=== PATIENT | female | born 1985 | race Caucasian/White ===

== ENCOUNTER 2024-09-13 10:35 | Emergency (ER) | payer OTHER, SELFPAY ==
[2024-09-13] VITALS (8 sets, daily range): BP systolic 103–129; BP diastolic 76–89; PULSE 67–86; RESP 16; TEMP 36.3; O2SAT 98–100; BMI 30.9
--- NOTE | 2024-09-13 10:38 | USR_ITS ---
PROCEDURE INFORMATION: Exam: US Pelvis, Transvaginal, Non-Obstetric Exam date and time: 09/13/2024 12:27 PM Age: 38 years old Clinical indication: Other: Bleeding; Additional info: Vag bleeding TECHNIQUE: Imaging protocol: Real-time transvaginal pelvic (non-obstetric) ultrasound with image documentation. Transvaginal imaging was used for better evaluation of the endometrium, adnexa, and/or cervix. COMPARISON: No relevant prior studies available. FINDINGS: Uterus: Endocervical canal demonstrates heterogeneous complex mobile material on the cine images, without significant color flow. This could represent blood products within the endocervical canal with the clinical history. Uterine trace is 10.1 cm which includes the cervix. Uterus measures 6.99 cm in width and 5.5 cm AP. Thickened echogenic endometrium of 2.1 cm along with fluid in the endometrial cavity. Mildly heterogeneous rounded focus x2 is seen within the myometrium of the uterus measuring 3.8 x 3.6 x 2.7 cm and 3.3 x 3.5 x 3.2 cm. Findings are most suggestive of uterine fibroids. Right ovary/adnexa: Right ovary measures 3.5 x 3 x 3.7 cm with a volume 20.9 mL. Right ovarian flow is seen with PSV 11.1 cm/s and EDV of 7.8 cm/s. RI of 0.3. Complex cystic structure right ovary of 3.2 x 2.5 x 3 cm. Left ovary/adnexa: Left ovary measures 2.9 x 2.8 x 1.8 cm with a volume of 7.5 mL. Left ovarian flow is seen with PSV 20.3 cm/s and EDV of 9.1 cm/s. No RI given. Complex cyst suggested left ovary of 1.1 x 1.2 x 1.2 cm. Urinary bladder: Urinary bladder is limited. Intraperitoneal space: Patm-dp-kdafbcxk free fluid near the fundus of the uterus. US/US transvaginal [id number] IMPRESSION: 1. Two rounded heterogeneous foci or masses within the myometrium of the uterus most suggestive of uterine fibroids, measuring 3.8 x 3.6 x 2.7 cm and 3.3 x 3.5 x 3.2 cm. 2. Thickened endometrium of 2.1 cm along with fluid in the endometrial cavity. Heterogeneous complex mobile material within the endocervical canal noted, could represent blood products within the endocervical canal with the clinical history. 3. Complex cystic structure right ovary of 3.2 x 2.5 x 3 cm and complex cyst of the left ovary of 1.1 x 1.2 x 1.2 cm. Bilateral ovarian flow is seen. 4. Rgkx-vr-iqgplgtl free fluid near the fundus of the uterus.
--- OUTSIDE RECORDS SUMMARY | 2024-09-13 10:45 | XMS_ITS | Clinical Summary ---
Author Organization [employer] Address [address], [address] [place] [address] Care Team Providers Care Fitness Attendant Name Role Phone Unavailable Unavailable Unavailable Problems This patient has no known problems. Allergies, Adverse Reactions, Alerts This patient has no known allergies or adverse reactions. Immunizations Ordered Immunization Name Filled Immunization Name Date Status Comments Refusal Reason COVID-19, mRNA, LNP-S, PF, 30 mcg/0.3 mL dose COVID-19, mRNA, LNP-S, PF, 30 mcg/0.3 mL dose 2020-11-14 00:00:00 COVID-19, mRNA, LNP-S, PF, 30 mcg/0.3 mL dose COVID-19, mRNA, LNP-S, PF, 30 mcg/0.3 mL dose 2020-10-24 00:00:00
--- OUTSIDE RECORDS SUMMARY | 2024-09-13 10:45 | XMS_ITS | Clinical Summary ---
Author Organization [facility] [place] Address [address] [place] [place] [address] Care Team Providers Care Hydro Mechanic Name Role Phone Ana Goodson (D.O.) Primary Care Provider [phone] Source Comments NOTE: The information displayed by Care Everywhere is extracted from the complete medical record and may not identify all current or past patient conditions.[facility] Allergies Active Allergy Reactions Criticality Noted Date Comments Penicillins Class Rash 12/09/2007 Medications Medication Sig Dispensed Refills Start Date End Date Status tiZANidine (ZANAFLEX) 2 mg Oral TabIndications:RI GHT HIP JOINT PAIN Take 1 tablet by mouth 3 times a day as needed for muscle spasms 30 tablet 07/24/2023 07/23/2025 Active Additional Information Patient not taking.Reported on 08/13/2023 Tranexamic Acid (LYSTEDA) 650 mg Oral Tab Take 2 tablets by mouth 3 times a day for 5 days 30 tablet 01/03/2024 01/02/2026 Active Levonorgestrel (MIRENA) 21 mcg/24hr (up to 8 yrs) 52 mg UTRN IUDIndications:IU D INSERTION 1 Each by Intrauterine route one time as directed now. Replace within 8 years--given in clinic 1 Each 01/06/2024 01/04/2032 Active Active Problems Problem Noted Date Diagnosed Date GI SYMPTOMS 03/11/2020 Overview (03/11/2020): Added automatically from request for surgery [id number] HX OF DM RESOLVED POST BARIATRIC SURGERY 016 HX OF SLEEVE GASTRECTOMY 10/11/2015 FHX OF OVARIAN CANCER 08/09/2015 Overview (08/09/2015): Pt unclear on details of history because not in touch with mother for 10 years. Referred to genetics for further discussion. HYPERLIPIDEMIA 04/28/2015 SEVERE OBESITY, BMI 45-49.9, ADULT 04/25/2015 DYSLIPIDEMIA 01/07/2014 LEFT AMBLYOPIA 02/20/2013 STRABISMUS 02/20/2013 *OTHER MR# EXISTS Overview (08/21/2005): ACTIVE: [id number] INACTIVE: [id number] Resolved Problems Problem Noted Date Diagnosed Date Resolved Date GERD (GASTROESOPHAGEAL REFLUX DISEASE) 02/22/2009 04/25/2015 PAIN, PELVIC, FEMALE, UNK ETIOLOGY. 12/09/2007 04/25/2015 *NEW MEMBER 03/10/2024 Overview (03/10/2024): Membership Terminated Immunizations Name Administration Dates Next Due COVID-19 mRNA, LNP-S, PF (kissnofrog-Whereech) PURPLE CAP 11/14/2020,10/24/2020 COVID-19 mRNA, LNP-S, PF 12y rs-Adult (MediBeaconech, che-sucrose) BLISS CAP 05/19/2021 DTaP (Diphtheria, Tetanus, a cellular Pertussis) 02/28/1987,07/05/1986,08/12/1985,1985,01/28/1985 HAV (Hepatitis A) 12/24/2013,06/04/2002 HBV (Hepatitis B) 09/01/1998,04/14/1998,03/11/18 99 INF (Influenza) unspecified formulation 12/24/2013,02/09/2011 MMR (Measles, Mumps, Rubella) 10/10/1998, 987 JOSE-IPV (Polio, Inactivated virus) 02/28,07/05/1986,04/23/1985,1984 JOSE-OPV (Polio, live virus) 02/28/1987,0 07/05/1986,04/23/1985,1984 TB-PPD, (TB skin test) 01/07/2014,12/24/2013 TD pres free (Tetanus, Dipht heria) (TdVax), adsorbed 06/04/2002 Td adult (Tetanus, diphtheri a toxoids) unspecified formulation 06/04/2002 Tdap (Tetanus, diphtheria, a cellular pertussis) 02/09/2011 Family History Medical History Relation Comments Breast Cancer Aunt Cervical Cancer Mother diagnosed in her mid 40 's Ovarian Cancer Mother unclear about th is Colon Cancer None Relation Status Comments Aunt Mother Social History Tobacco Use Types Packs/Day Years Used Date Smoking Tobacco: Former Cigarettes 0.1 0.1 0 07/20/2001 - 08/25/2001 Passive Smoke Exposure: Never Smokeless Tobacco: Never Tobacco Cessation:Counseling Given: Not Answered Comments:for 2 months Alcohol Use Standard Drinks/Week Comments No 0 (1 standard drink = 0.6 oz pur e alcohol) Substance Use Types Use/Week Comments No Sex and Gender Information Value Date Recorded Sex Assigned at Not on file Gender Identity Not on file Sexual Orientation Not on file Last Filed Vital Signs Vital Sign Reading Time Taken Comments Blood Pressure 128/88 01/03/2024 5:00 PM PDT Pulse 80 01/03/2024 5:00 PM PDT Temperature 36.9 C (98.4 F) 01/03/2024 9:19 AM PDT Respiratory Rate 16 01/03/2024 5:00 PM PDT Oxygen Saturation 98% 01/03/2024 5:00 PM PDT Inhaled Oxygen Concentration - - Weight 84.4 kg (186 lb) 01/06/2024 9:21 AM PST Height 162.6 cm (5' 4 ) 01/06/2024 9:21 AM PST Body Mass Index 31.93 01/06/2024 9:21 AM PST Plan of Treatment Not on file Medical Devices Implanted Type Area Parlor Chaperone Device Identifier Shelf Expiration Date Model / Serial / Lot Iud Mirena- Implanted:Qty: 1 on 01/06/2024 by Edwina Sheridan) Gynecolo gy/Obste trics Uterus DAISY LAURIE [id number] 06/01/2025 [id number] / [id number] Advance Directives * Full Code (Latest Code Status on File) Date Activated Date Inactivated Comments 10/05/2015 2:54 PM 10/06/2015 10:45 PM * Full Code Date Activated Date Inactivated Comments 10/05/2015 10:32 AM 10/05/2015 2:54 PM Care Teams Hydro Mechanic Relationship Specialty Start Date End Date Ana Goodson (D.OMarianne) [address] [facility]3] ASH[place] WOMACK [phone] (Work) PCP - General 08/28/21
--- OUTSIDE RECORDS SUMMARY | 2024-09-13 10:45 | XMS_ITS | Encounter Summary ---
Author Organization [facility] [place] Address [address] [address] Care Team Providers Care Cafeteria Associate Name Role Phone Edwina Sheridan) Ana Oh (D.O.) Primary Care Provider [phone] Encounter Details Date Type Department Care Team (Late st Contact Info) Description 10/23/2021 Orders Only OBSTETRICS AND GYNECOLOGY [address] [place] [address] Edwina Sheridan) [address] [place] [address] [phone] (Work) SCREENING FOR CERVICAL CANCER Social History Tobacco Use Types Packs/Day Years Used Date Smoking Tobacco: Former Cigarettes 0.1 0.1 0 07/20/2001 - 08/25/2001 Smokeless Tobacco: Never Comments:for 2 months Alcohol Use Standard Drinks/Week Comments No 0 (1 standard drink = 0.6 oz pur e alcohol) Substance Use Types Use/Week Comments No Sex and Gender Information Value Date Recorded Sex Assigned at Not on file Gender Identity Not on file Sexual Orientation Not on file documented as of this encounter Procedure Notes * Edwina Sheridan) - 10/25/2021 1:17 AM PDTAssociated Order(s): CERVICAL CANCER SCREENING RESULTS, KP.ORG RELEASE I'm pleased to inform you that your recent cervical cancer screening (HPV test) was normal. Unless instructed otherwise, your next cervical cancer screening tests will be due in 3 years. Please call my office or send me an email message on .[email or web address] if you have any questions or concerns before your next exam. <a href= https://www..org/ncalpapnh target= _top > Clic aqu para mirar los resultados en espa ol</a> <a href= [email or web address]/nctessa/ target= _top > Click here to E- mail your doctor</a> documented in this encounter Plan of Treatment Not on file documented as of this encounter Procedures Procedure Name Priority Date/Time Associated Diagnosis Comments HPV, HIGH RISK TYPES Routine 10/23/2021 3:42 PM PDT SCREENING FOR CERVICAL CANCER CERVICAL CANCER SCREENING RESULTS, [email or web address] RELEASE 10/23/2021 3:42 PM PDT documented in this encounter Results * HPV, HIGH RISK TYPES (10/23/2021 3:42 PM PDT) Specimen source Cervical [facility] HPV 16/18 DNA, PCR NEGATIVE NEGATIVE [facility] HPV 12-OTHER DNA, PCR NEGATIVE NEGATIVE [facility] HPV DNA INTERPRETATION , PCR SEE NOTE [facility] Comment: This is a normal result. HPV DNA type 16, 18, 31, 33, 35, 39, 45, 51, 52, 56, 58, 59, 66 and 68 were undetectable. 10/23/2021 3:42 PM PDT 10/23/2021 10:16 PM PDT Edwina Ray) Arvin [facility] ONLY [facility] [address] [place] [address] * CERVICAL CANCER SCREENING RESULTS, .ORG RELEASE (10/23/2021 3:42 PM PDT) 10/23/2021 3:42 PM PDT Narrative Procedure Note Edwina Sheridan) - 10/25/2021 1:17 AM PDTI'm pleased to inform you that your recent cervical cancer screening (HPV test) was normal. Unless instructed otherwise, your next cervical cancer screening tests will be due in 3 years. Please call my office or send me an email message on .[email or web address] if you have any questions or concerns before your next exam. <a href= https://www..org/ncalpapnh target= _top > Clic aqu para mirar los resultados en espa ol</a> <a href= https://[email or web address]/nctessa/ target= _top > Click here to E- mail your doctor</a> Edwina Ray) Arvin [facility] documented in this encounter Visit Diagnoses Diagnosis SCREENING FOR CERVICAL CANCER SCREENING FOR CA, CERVIX documented in this encounter Care Teams Cafeteria Associate Relationship Specialty Start Date End Date Edwina Sheridan) [address] [place] [address] PCP - NURSE LDR Physician 06/16/1401/26 Ana Goodson (D.OMarianne) [address] [place] [address] [phone] (Work) PCP - General 08/28/21 documented as of this encounter
--- OUTSIDE RECORDS SUMMARY | 2024-09-13 10:45 | XMS_ITS | Encounter Summary ---
Author Organization [facility] [place] Address [address] [place] [address] Care Team Providers Care Daycare Worker Name Role Phone Edwina Sheridan) Daksha Tucker) Primary Care Provider [phone] Ana Goodson (D.OMarianne) Primary Care Provider [phone] Encounter Details Date Type Department Care Team (Late st Contact Info) Description 05/17/2020 Orders Only DEFAULT SECURE MESSAGE DEPT [address] [place] [phone] Social History Tobacco Use Types Packs/Day Years [...] on file documented as of this encounter Plan of Treatment Not on file documented as of this encounter Procedures Procedure Name Priority Date/Time Associated Diagnosis Comments SARS-COV-2, JED (COVID-19), REFERRAL LAB, -[facility] Routine 05/17/2020 12:27 PM PDT documented in this encounter Results * SARS-COV-2, JED (COVID-19), REFERRAL LAB, -[facility] (05/17/2020 12:27 PM PDT) Specimen source MACHINE OPERATIONS SUPERVISOR/OP [facility] , CLINICAL PATHOLOGY [facility] SARS-COV-2 (COVID-19) PANEL, JED Not Detected [facility] , CLINICAL PATHOLOGY [facility] Comment: The test has been validated and the Food and Drug Administration s independent review of this validation is pending. Test results are for the identification of SARS-CoV-2 RNA, which may be detectable in samples submitted during the acute phase of infection. Positive / Detected. GM- CoV-2 RNA present. Negative / Not Detected results for GM- CoV-2 RNA do not rule out COVID-19 infection and should not be used as the sole basis for patient management. Negative / Not Detected results must be combined with other information such as patient history, clinical observations and epidemiology. Resubmit if clinically indicated. Presumptive Positive. Not all COVID-19 targets detected. Consider the test POSITIVE if there was a high pre-test probability of COVID-19 infection. Consider repeat testing if clinically indicated. Inconclusive. Not all COVID-19 targets detected. Consider repeat testing if clinically indicated. For I nvalid results a new specimen needs to be obtained for retesting. This test is only authorized for the duration of the declaration that circumstances exist justifying the authorization of the emergency use of in vitro diagnostic tests for the detection of GM- CoV-2 RNA and/or diagnosis of COVID-19 infection. Nasopharynx/Oropharynx source. 05/17/2020 12:2 7 PM PDT 05/17/2020 12:28 PM PDT Secure Message Provider [facility], CLINICAL PATHOLOGY [facility] [address] [place] [address] documented in this encounter Visit Diagnoses Not on filedocumented in this encounter Care Teams Daycare Worker Relationship Specialty Start Date End Date Edwina Sheridan) [address] [place] [address] PCP - SANDBLASTER STONE Physician 06/16/1401/26 Daksha Ozuna) [address] [place] [phone] (Work) [phone] (Fax) PCP - General 04/21/15 06/01/21 Ana Goodson) [address] [place] [phone] (Work) PCP - General 08/28/21 documented as of this encounter
--- OUTSIDE RECORDS SUMMARY | 2024-09-13 10:45 | XMS_ITS | Clinical Summary ---
Author Organization [employer] Address [facility] [place] [address] Care Team Providers Care Roof Slater Name Role Phone Myron Unavailable Allergies Active Allergy Reactions Criticality Noted Date Comments Penicillins 12/19/2011 Medications MULTIVITAMIN (DAILY VITAMINS ORAL) Take by mouth. 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 at [facility] d 12/24/2013 Overview (12/24/2013): Latest March 2013 per patient Myopia with astigmatism 02/20/2013 Anisometropia 02/20/2013 Strabismus 02/20/2013 Amblyopia - Left Eye 02/20/2013 Immunizations Immunization Administration Dates Next Due COVID-19 Pfizer, mRNA, LNP-S , PF, 30 mcg/0.3 mL dose (purple cap) (BRV=967) 11/14/2020,10/24/2020 COVID-19 Pfizer, mRNA, LNP-S , PF, 30 mcg/0.3 mL dose, Comirnaty (vargas cap) (AGP=265) 05/19/2021 DTP (CVX=01) 02/28/1987, 7,08/12/1985,1985,01/28/1985 Hep A, adult (CVX=52) 12/24/2013 Hep A, pediatric, unspecifie d formulation (CVX=31) 06/04/2002 Hep B, adolescent or pediatr ic (CVX=08) 09/01/1998,04/14/1998,03/11/1998 MMR (CVX=03) 10/10/1998,07/15/1986 OPV (CVX=02) 02/28/1987, 7,04/23/1985,1984 TST-PPD intradermal (CVX=96) 01/07/2014,12/25/19 14 Td(adult) unspecified formul ation (TJJ=870) 06/04/2002 Tdap (EDR=440) 02/09/2011 influenza, injectable, quadr ivalent (HDV=153) 12/24/2013 influenza, unspecified formu lation (CVX=88) 02/09/2011 Family History Relation Status Comments Father Alive Mother Alive Social History Tobacco Use Types Packs/Day Years Used Date Smoking Tobacco: Never Alcohol Use Standard Drinks/Week Comments No 0 (1 standard drink = 0.6 oz pur e alcohol) Comments Unknown Sex and Gender Information Value Date Recorded Sex Assigned at Not on file Legal Sex Female 4:25 AM PST Gender Identity Not on file Sexual Orientation Not on file Last Filed Vital Signs Vital Sign Reading Time Taken Comments Blood Pressure 128/87 01/07/2014 1:24 PM PST Pulse 86 01/07/2014 1:24 PM PST Temperature 36.7 C (98 F) 01/07/2014 1:24 PM PST Respiratory Rate 18 12/19/2011 12:16 PM PDT Oxygen Saturation 98% 01/07/2014 1:24 PM PST Inhaled Oxygen Concentration - - Weight 118.4 kg (261 lb) 01/07/2014 1:24 PM PST Height 163 cm (5' 4.17 ) 12/24/2013 1:10 PM PDT Body Mass Index 44.56 12/24/2013 1:10 PM PDT Plan of Treatment Health Maintenance Due Date Last Done Comments Hepatitis C Screening Adults 1985 HIV Screening 11/26/1999 TdaP then Td-TdaP Q10yr Adul ts non- (7 - Td or Tdap) 02/09/2021 02/09/2011, 06/04/2002, 02/28/1987, Additional history exists COVID-19 Vaccine (4 - 2023-2 5 season) 2023 05/19/2021, 11/14/2020, 10/24/2020 Influenza Vaccine (#1) 2024 12/24/2013, 2010 IPV VACCINES Completed 02/28/1987, 05/0 06/1986, 04/23/1985, Additional history exists Hepatitis B Vaccine Completed 09/01/1998, 04/14/1998, 03/11/1998 RPR Screening Completed 09/08/2009 TB Risk Assessment Completed 01/09/2014, 01/07/2014 Procedures Procedure Name Priority Date/Time Associated Diagnosis Comments APPLY TB SKIN TEST Routine 01/09/2014 1: 19 PM PST Dyslipidemia (high LDL; low HDL) RAPID PLASMA REAGIN Routine 09/08/2009 9 :05 AM PDT from Last 3 Months or Most Recently Relevant to Health Maintenance Results * TB Skin Test (01/09/2014 1:19 PM PST) TB Skin Test Negative Negative Induration TB test 0 mm Specimen of unknown material (specimen) 01/09/2014 1:19 PM PST us Jose Sevilla MD NURSING TREATMENT ORDERABLES - ONCE Final Result * Rapid Plasma Reagin (09/08/2009 9:05 AM PDT) RPR NON-REACT. NON-REAC. [facility] 09/08/2009 9:05 AM PDT 09/08/2009 9:29 AM PDT us Raquel Corado [facility] BLOOD ORDERABLES Final Res ult [facility] from Last 3 Months or Most Recently Relevant to Health Maintenance Care Teams Roof Slater Relationship Specialty Start Date End Date [place] [address] [place], [place] [address] PCP - Patient Location 03/28/09
--- OUTSIDE RECORDS SUMMARY | 2024-09-13 10:45 | XMS_ITS | Clinical Summary ---
Author Organization [employer] Address [address] [place] [address] Care Team Providers Care Road Commissioner Name Role Phone Unavailable Primary Care Provider Unavailabl e Social History Tobacco Use Types Packs/Day Years Used Date Smoking Tobacco: Never Assessed Comments Unknown Sex and Gender Information Value Date Recorded Sex Assigned at Not on file Legal Sex Female 6:25 PM PDT Gender Identity Not on file Sexual Orientation Not on file Plan of Treatment Health Maintenance Due Date Last Done Comments Screening: HIV 1984 IMM DTAP/TDAP/TD (1 - Tdap) 11/26/2003 Screening: Cervical Cancer 2014 IMM COVID-19 (2023- season) 2023 IMM Influenza (#1) 2024 IMM Meningococcal ACWY Aged Out No lo nger eligible based on patient's age to complete this topic IMM Meningococcal B Aged Out No longe r eligible based on patient's age to complete this topic IMM Pneumococcal Ages 0-49 Aged Out N o longer eligible based on patient's age to complete this topic IMM RSV Vaccine under 20 MOS Aged Out No longer eligible based on patient's age to complete this topic
--- OUTSIDE RECORDS SUMMARY | 2024-09-13 10:45 | XMS_ITS | Clinical Summary ---
Author Organization [facility] Address [address] 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 The Federal rules prohibit you from making any further disclosure of this information unless further disclosure is expressly permitted by the written consent of the person to whom it pertains or as otherwise permitted by 42 CFR part 2. A general authorization for the release of medical or other information is NOT sufficient for this purpose. The Federal rules restrict any use of the information to criminally investigate or prosecute any alcohol or drug abuse patient.[facility] Allergies Active Allergy Reactions Criticality Noted Date Comments Penicillins Headache,Nausea,Rash, Unspecified 1 Medications Multiple Vitamin (MULTIVITAMIN ADULT PO) Take by mouth Active omeprazole (PRILOSEC OTC) 20 MG Tab Take one Tab by mouth daily Active buPROPion 12Hr-SR (WELLBUTRIN SR) 100mg Tab Take one Tab by mouth every morning 05/26/2024 Active Immunizations Immunization Administration Dates Next Due DTP 02/28/1987, 7,08/12/1985,1985,01/28/1985 Hepatitis A 12/24/2013 Hepatitis A Vaccine, Pediatr ic Dosage, Nos 06/04/2002 Hepatitis B (ENGERIX-B, SVETLANA MBIVAX HB) 0.5mL Ped/Adol Dose Vaccine through 19YO INJ 09/01/1998,04/14/1998,03/11/1998 Influenza Virus Vaccine, NOS 02/09/2011 Influenza vaccine QUADR MDV 3+ YO (FLUZONE, AFLURIA) 12/24/2013 MMR Vaccine INJ 10/10/1998,07/15/1986 Pfizer 12+ Monovalent ([place] Cap - DO NOT DILUTE) COVID-19 Vaccine INJ 05/19/2021 Pfizer 12+ Monovalent (Purpl e Cap) COVID-19 Vaccine INJ 11/14/2020,10/24/2020 Polio Oral *TOPV 02/28/1987, 7,04/23/1985,1984 Td (Adult) Unspecified Formulation 06/04/2002 Tdap (ADACEL) 7-64 YRS 02/09/2011 Tuberculin Skin Test, Purifi ed Protein Derivative, Intradermal 01/07/2014,12/24/2013 Family History Medical History Relation Comments Cancer - Cervical Maternal Aunt Diabetes Maternal Grandmother Depression Mother Emphysema Mother Schizophrenia Mother Substance Abuse Mother Tobacco abuse Mother Breast cancer No Significant Family History Cerebrovascular Disease/Stroke No Significant Fa mary History Colon Cancer No Significant Family History Coronary Artery Disease No Significant Family Hi story Lung Cancer No Significant Family History Relation Status Comments Father Unknown Maternal Aunt Alive Maternal Grandmother Mother Social History Tobacco Use Types Packs/Day Years Used Date Smoking Tobacco: Never Passive Smoke Exposure: Never Tobacco Cessation:Counseling Given: Not Answered Alcohol Use Standard Drinks/Week Comments Never 0 (1 standard drink = 0.6 oz pur e alcohol) Overall Financial Resource Strain (CARDIA) Answe r Date Recorded How hard is it for you to pa y for the very basics like food, housing, medical care, and heating? Somewhat hard 05/26/2024 Hunger Vital Sign Answer Date Recorded Within the past 12 months, y ou worried that your food would run out before you got the money to buy more. Sometimes true Ran Out of Food in the Last Year Not on file 05/26/2024 Housing Stability Vital Sign Answer Eugene e Recorded Unable to Pay for Housing in the Last Year Not o n file 05/26/2024 Number of Times Moved in the Last Year Not on fi le 05/26/2024 At any time in the past 12 m [facility], were you homeless or living in a detention (including now)? No 05/26/2024 Depression Answer Date Recorded PHQ-9 Total Score (0-4 None- minimal; 5-9 Mild; 10-14 Moderate; 15-19 Mod. Severe; 20-27 Severe) 4 05/26/2024 Core Social Determinants of Health Screening Questions Answer Date Recorded Within the past 12 months, y ou worried that your food would run out before you got the money to buy more. Sometimes true 05/26/2024 Food Insecurity Food Insecurity Present 05/27/19 At any time in the past 12 m [facility], were you homeless or living in a detention (including now)? No 05/26/2024 How hard is it for you to pa y for the very basics like food, housing, medical care, and heating? Somewhat hard 05/26/2024 Physically Abused Not on file 05/26/2024 Comments No Sex and Gender Information Value Date Recorded Sex Assigned at Not on file Legal Sex Female 8:38 AM PST Gender Identity Not on file Sexual Orientation Not on file Last Filed Vital Signs Vital Sign Reading Time Taken Comments Blood Pressure 124/80 05/26/2024 11:26 AM PDT Pulse 65 05/26/2024 11:26 AM PDT Temperature 36.6 C (97.9 F) 05/26/2024 11:26 AM PDT Respiratory Rate - - Oxygen Saturation - - Inhaled Oxygen Concentration - - Weight 82.1 kg (181 lb) 05/26/2024 11:26 AM PDT Height 162.6 cm (5' 4 ) 05/26/2024 11:26 AM PDT Body Mass Index 31.07 05/26/2024 11:26 AM PDT Plan of Treatment Health Maintenance Due Date Last Done Comments HPV SCREENING 1996 VARICELLA VACCINE (1 of 2 - 13+ 2-dose series) 11/07/1998 ANNUAL LABS POST BARIATRIC SURGERY FOLLOW-UP 2002 HEPATITIS C SCREENING 2002 UNIVERSAL HIV SCREENING 2002 PAP SMEAR 2005 DTaP,Tdap,or Td Vaccine (7 - Td or Tdap) 02/09/2021 02/09/2011, 06/04/2002, 02/28/1987, Additional history exists COVID-19 Vaccine ( season) 2023 05/19/2021, 11/14/2020, 10/24/2020 INFLUENZA VACCINE 12/02/2024 12/24/2013, 02/09/2011 DIABETES SCREENING 08/12/2026 08/13/2023 HEPATITIS B VACCINE Completed 09/01/1998, 04/14/1998, 03/11/1998 MMR VACCINE ADULT Completed 10/10/1998, 07/15/1986 HEPATITIS A VACCINE Completed 12/24/2013, 3 HPV VACCINE Aged Out No longer eligi ble based on patient's age to complete this topic MENINGOCOCCAL ACWY VACCINE Aged Out N o longer eligible based on patient's age to complete this topic PNEUMOCOCCAL VACCINE 0-49 YEARS Aged Out No longer eligible based on patient's age to complete this topic Insurance [facility] H[facility] HMO [facility] HMO Care 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
--- NOTE | 2024-09-13 11:47 | W.ED.FEMALGU ---
HPI - Female Genitourinary General: Chief complaint: Vaginal Bleeding Stated complaint: vaginal bleeding x2 days, IUD came out Time Seen by Provider: 09/13/24 10:52 Source: patient Mode of arrival: ambulatory Limitations: no limitations History of Present Illness: 38-year-old female states that she had a Mirena IUD placed 8 months ago. States it fell out last night at 10 PM states she has been having some heavy vaginal bleeding since then. States she has had this happen once before as well. Had minimal pain denies any lightheadedness she is not on any blood thinners. Associated symptoms: Deny abdominal pain, headache(s) or nausea Date of Last Menstrual Period: 08/27/24 Related Data Home Medications ?Medication ?Instructions ?Recorded ?Confirmed No Known Home Medications 09/13/24 09/13/24 Allergies Allergy/AdvReac Type Severity Reaction Status Date / Time onion Allergy ALGY-Bliste Verified 09/13/24 11:41 r Penicillins Allergy ALGY-Rash Verified 09/13/24 11:41 Review of Systems Const: Denies: fever(s), chills, body aches or change in appetite ENMT: Denies: throat pain or dental pain Card: Denies: chest pain Resp: Denies: dyspnea GI: Denies: abdominal pain, nausea, vomiting or diarrhea : Reports: vaginal bleeding Musc: Denies: neck pain or back pain Skin/Breast: Denies: rash Neuro: Denies: headache(s) COUNTS INCLUDE 234 BEDS AT THE [facility] ED Female Reproductive History: Date of last menstrual period: 08/27/24 Physical Exam Const: COMMON NORMALS: no acute distress, patient oriented x3 and healthy appearing HENMT: COMMON NORMALS: normocephalic and atraumatic HEAD & SCALP: normocephalic and atraumatic Eye: COMMON NORMALS: conjunctivae normal CONJUNCTIVA: Yes conjunctivae normal Neck/C-Spine: COMMON NORMALS: full ROM and supple Chest: COMMONS NORMALS: normal inspection of the chest and normal palpation of entire chest wall Resp: COMMON NORMALS: normal respiratory effort Cardio: COMMON NORMALS: regular rate, regular rhythm and No murmurs present (Cardio) RATE: regular rate RHYTHM: regular rhythm GI: COMMON NORMALS: Normal to inspection, nondistended, normoactive bowel sounds present, Soft to palpation, non-tender and no masses PALPATION: Yes Soft to palpation Extremity: COMMON NORMALS: normal to inspection and full ROM Neuro: COMMON NORMALS: patient oriented x3, moves all extremities and no focal motor deficits Psych: COMMON NORMALS: mental status grossly normal, Normal thought process present and cooperative THOUGHT PROCESS: Normal thought process present Skin: COMMON NORMALS: no rashes or lesions noted and no wounds GENERAL SKIN EXAM: no rashes or lesions noted Course Vital Signs: Vital signs: Vital Signs Temperature 97.4 F L 09/13/24 11:32 Pulse Rate 86 09/13/24 11:32 Respiratory Rate 16 09/13/24 11:32 Blood Pressure 103/87 09/13/24 11:32 Pulse Oximetry 100 09/13/24 11:32 Oxygen Delivery Me thod Room Air 09/13/24 11:32 MDM - Female Medical Decision Making Patient is present here with vaginal bleeding her IUD had also fell out her bleeding is slowed here after TXA did her vaginal exam at 1530 minimal blood in the vaginal vault with no active bleeding from the cervix she is stable for discharge she is to follow-up with her OB return if worsening she understands agrees to plan Medical Records I reviewed the patient's medical records. Lab Data I reviewed the patient's lab results. 09/13/24 14:00 09/13/24 11:40 Radiology Impressions Transvaginal US 09/13/24 10:38 IMPRESSION: 1. Two rounded heterogeneous foci or masses within the myometrium of the uterus most suggestive of uterine fibroids, measuring 3.8 x 3.6 x 2.7 cm and 3.3 x 3.5 x 3.2 cm. 2. Thickened endometrium of 2.1 cm along with fluid in the endometrial cavity. Heterogeneous complex mobile material within the endocervical canal noted, could represent blood products within the endocervical canal with the clinical history. 3. Complex cystic structure right ovary of 3.2 x 2.5 x 3 cm and complex cyst of the left ovary of 1.1 x 1.2 x 1.2 cm. Bilateral ovarian flow is seen. 4. Zknh-qw-jnizgshc free fluid near the fundus of the uterus. Laboratory Results WBC 7.32 10^3/uL (3.29-11.43) 09/13/24 11:40 RBC 4.13 10^6/uL (3.85-5.65) 09/13/24 11:40 Hgb 9.40 g/dL (11.27-16.99) L 09/13/24 14:00 Hct 29.5 % (36-47) L 09/13/24 14:00 MCV 87.2 fl (85-98) 09/13/24 11:40 MCH 27.6 pg (27-33) 09/13/24 11:40 MCHC 31.7 g/dL (30-55) 09/13/24 11:40 RDW 14.9 % (12.1-15.1) 09/13/24 11:40 Plt Count 227 10^3/cmm (157-399) 09/13/24 11:40 MPV 11.8 fL (7.4-10.4) H 09/13/24 11:40 Neut % (Auto) 52.9 % 09/13/24 11:40 Lymph % (Auto) 34.3 % 09/13/24 11:40 Gray % (Auto) 10.2 % 09/13/24 11:40 Eos % (Auto) 1.4 % 09/13/24 11:40 Baso % (Auto) 0.8 % 09/13/24 11:40 Neut # (Auto) 3.87 10^3/uL (1.8-7.7) 09/13/24 11:40 Lymph # (Auto) 2.5 10^3/uL (0.8-4.8) 09/13/24 11:40 Gray # (Auto) 0.8 10^3/uL (0.2-0.9) 09/13/24 11:40 Eos # (Auto) 0.1 10^3/uL (0.0-0.8) 09/13/24 11:40 Baso # (Auto) 0.1 10^3/uL (0.0-0.1) 09/13/24 11:40 Nucleated RBC % (auto) 0 % 09/13/24 11:40 Nucleated RBCs # 0.0 /100WBC 09/13/24 11:40 Sodium 137 mmol/L (136-145) 09/13/24 11:40 Potassium 3.7 mmol/L (3.5-5.1) 09/13/24 11:40 Chloride 102 mmol/L (98-107) 09/13/24 11:40 Carbon Dioxide 20 mmol/L (22-29) L 09/13/24 11:40 Anion Gap 18.7 (5-19) 09/13/24 11:40 BUN 9 mg/dL (6-20) 09/13/24 11:40 Creatinine 0.9 mg/dL (0.5-0.9) 09/13/24 11:40 GFR Calculation 69.7 mL/min (90-130) L 09/13/24 11:40 Glucose 81 mg/dL (65-115) 09/13/24 11:40 Calculated Osmolality 282 mOsm/kg (285-295) L 09/13/24 11:40 Calcium 9.6 mg/dL (8.5-10.5) 09/13/24 11:40 Total Bilirubin 0.7 mg/dL (0.15-1.2) 09/13/24 11:40 AST 18 U/L (0-32) 09/13/24 11:40 ALT 8 U/L (0-33) 09/13/24 11:40 Alkaline Phosphatase 59 U/L (35-105) 09/13/24 11:40 Total Protein 7.9 g/dL (6.6-8.7) 09/13/24 11:40 Albumin 4.6 g/dL (3.5-5.2) 09/13/24 11:40 Globulin 3.3 g/dL (1.3-4.6) 09/13/24 11:40 HCG, Qual Negative (Negative) 09/13/24 11:40 All radiology interpretation(s) finalized by discharge Discharge Plan Discharge Patient Disposition: Home Clinical Impression: Vaginal bleeding Condition: Stable Prescriptions: No Action No Known Home Medications Discharge Orders: Discharge ED (Routine); Ordered 09/13/24 Ordered By: Jac Bryan Discharge Diet: Advance as tolerated Discharge Activity: Resume usual activity Patient Instructions: Abnormal (Dysfunctional) Uterine Bleeding (ED) Print Language: Lithuanian Coding Level of Care Code ED Reporting Lead for Jessica Ochoa
[2024-09-13 12:04] LABS: Hematocrit 36.0 % (36-47); Hemoglobin 11.40 g/dL (11.27-16.99); Mean Corpuscular HGB Conc 31.7 g/dL (30-55); Mean Corpuscular Hemoglobin 27.6 pg (27-33); Mean Corpuscular Volume 87.2 fl (85-98); Nucleated Red Blood Cells % 0 %; Platelet Count 227 10^3/cmm (157-399); Red Blood Count 4.13 10^6/uL (3.85-5.65); White Blood Count 7.32 10^3/uL (3.29-11.43)
[2024-09-13 12:10] LABS: HCG, Serum Qual Negative (Negative)
[2024-09-13 12:18] LABS: Alanine Aminotransferase 8 U/L (0-33); Albumin Level 4.6 g/dL (3.5-5.2); Alkaline Phosphatase 59 U/L (35-105); Anion Gap 18.7 (5-19); Aspartate Amino Transferase 18 U/L (0-32); Blood Urea Nitrogen 9 mg/dL (6-20); Calcium 9.6 mg/dL (8.5-10.5); Carbon Dioxide 20 mmol/L (22-29); Chloride 102 mmol/L (98-107); Creatinine Clr Calc Pharmacy 86.7493; Globulin 3.3 g/dL (1.3-4.6); Glucose 81 mg/dL (65-115); Osmolality Calculated 282 mOsm/kg (285-295); Potassium 3.7 mmol/L (3.5-5.1); Sodium 137 mmol/L (136-145); Total Protein 7.9 g/dL (6.6-8.7)
[2024-09-13] MEDS: tranexamic acid 1,000 MG/100 ML PREMIX 600 MG IV (13:25)
[2024-09-13 14:35] LABS: Hematocrit 29.5 % (36-47); Hemoglobin 9.40 g/dL (11.27-16.99)
== END 2024-09-13 16:05 | disposition home or self-care (01) ==
PROVIDERS: Emergency Provider Emergency Medicine
DX: N93.9 Abnormal uterine and vaginal bleeding, unspecified (principal); Z97.5 Presence of (intrauterine) contraceptive device
CPT/HCPCS: 36415; 76830; 80053; 84703; 85014; 85018; 85025; 96365; 99284; J9999